=== PATIENT | female | born 1960 | race Caucasian/White ===

== ENCOUNTER 2019-02-01 08:18 | Day surgery (SDC) | payer OTHER ==
[~2019-02-01] VITALS: Ht 139.7 cm; Wt 79.8 kg
[2019-02-01] MEDS ORDERED: LIDOCAINE 2% 100 MG/5 ML UJET TP ONE (09:27)
[2019-02-01] MEDS ORDERED: fentaNYL 0.05 MG/ML VIAL ONE (09:27)
[2019-02-01] MEDS ORDERED: METF500T PO (09:42)
[2019-02-01] MEDS ORDERED: MONT5CTB22 PO (09:42)
[2019-02-01] MEDS ORDERED: GLIP10TE PO (09:42)
[2019-02-01] MEDS ORDERED: CETI10TA73 PO (09:42)
[2019-02-01] MEDS ORDERED: LISI-420 PO (09:42)
== END 2019-02-01 10:10 | disposition home or self-care (01) ==
LOC: MDS 08:18 → MMU 08:19 → MDS 10:10
PROVIDERS: ATTEND Internal Medicine Gastroenterology
DX: Z12.11 Encounter for screening for malignant neoplasm of colon (principal); K57.30 Diverticulosis of large intestine without perforation or abscess without bleeding; I10 Essential (primary) hypertension; E11.9 Type 2 diabetes mellitus without complications; E66.9 Obesity, unspecified; Z68.41 Body mass index [BMI] 40.0-44.9, adult; Z79.899 Other long term (current) drug therapy; Z79.84 Long term (current) use of oral hypoglycemic drugs; Z98.890 Other specified postprocedural states
CPT/HCPCS: 45378; 82948; J3010